=== PATIENT | female | born 1990 | race Caucasian/White ===

== ENCOUNTER 2019-04-14 17:48 | Emergency (ER) | payer SELFPAY ==
--- NOTE | 2019-04-14 20:07 | EDM.PDOC ---
ED [facility] GENERAL MEDICAL PROBLEM - General Chief Complaint: Respiratory Problem Time Seen by Provider: 04/14/19 19:38 - History of Present Illness INITIAL COMMENTS - FREE TEXT/NARRATIVE: HPI 28-year-old obese female smoker presents for evaluation of 2 days of cough and malaise. Denies fevers, chills, sore throat, nasal congestion. No history of DVT , PE, recent immobilization, calf tenderness, swelling, but notes scant bright red blood in sputum after significant coughing. Denies rash, neck stiffness, headache, changes in vision or hearing, or ear pain. Triage note: Patient to ED with complaint of cough and congestion since today. States prior to arrival she was coughing so hard that she coughed up bright red blood. M/S/F/SocHx notable for: please see HPI; remainder reviewed with patient and in chart. ROS: Negative constitutional, eye, cardiovascular, pulmonary, GI, , MSK, skin , neurologic, psychiatric, endocrine unless noted in the HPI. Exam HR 90, RR 18, BP 142/66, T 36.4C, SaO2 99% on room air. Gen: Pleasant, non-toxic appearing, resting comfortably. HEENT: Normocephalic, atraumatic. * Ears - TMs clear bilaterally, bilateral external auditory canals without erythema, inflammation, or swelling, bilateral mastoids nontender without overlying erythema, swelling, or warmth. * Eyes - Bilateral eyes without injection, swelling, or discharge, no proptosis or periorbital erythema, swelling, warmth, or tenderness. * Mouth - Anterior oropharynx with MMM, no lesions appreciated, floor of the mouth is soft and without swelling. Posterior oropharynx with mild erythema but without swelling, exudate, lesions, uvula midline. * Nose - nares without crusting or discharge. * Neck - Neck supple without posterior or anterior cervical chain lymphadenopathy bilaterally. Resp: Clear to auscultation bilaterally, normal work of breathing without accessory muscle usage. Infrequent nonproductive cough observed. Card: Regular rate and rhythm with no murmurs, rubs or gallops. Extremities warm and well perfused. GI: Non-tender to palpation throughout all quadrants, no masses or organomegaly appreciated. : Deferred Vascular: both calves of equal size and nontender to palpation. MSK: No visible deformities, strength and tone without visually appreciable deficit. Neuro: alert and oriented 3, no facial asymmetry, vision and hearing WNL. Heme/Lymph: Deferred Skin: Normal color with no visible lesions (other than noted above). Psych: Mood and affect appropriate. Imaging: CXR: No acute cardiopulmonary disease process. No focal infiltrate, cardiomegaly , rib fractures, or mediastinal widening, lung markings extend to the periphery bilaterally and there are no deep sulci. Radiologist's read pending. MDM Previous chart, nursing note, and vitals reviewed. A: 28-year-old obese female smoker presents for evaluation of 2 days of cough and malaise. DDx: viral rhinosinusitis, bacterial rhinosinusitis, pharyngitis (HSV vs viral NOS vs GAS vs bacterial NOS)], EBV, peritonsillar cellulitis, [employer], RPA, Mark' s angina, epiglottitis. Evaluation: Overall presentation most consistent with a viral upper respiratory tract infection, given the duration of symptoms and overall well compensated appearance, antibiotic treatment is not currently indicated, rapid strep not indicated, oral mucosa without lesions consistent with HSV or candidiasis, low suspicion for peritonsillar cellulitis or abscess given the absence of asymmetric swelling or uvular deviation, RPA is unlikely as the patient can comfortably flex and extend their neck and swallow without difficulty. As phonation is intact and breathing is unlabored doubt epiglottitis. The floor of the mouth is without evidence of Mark's angina. Lemierre's disease was considered but as the patient does not have signs of [employer] or sepsis, further evaluation was not indicated. Chest x-ray clear and without evidence of pneumonia. PE was considered on the differential, however there are no identifiable risk factors (aside from, process, however this is attributed to irritation from the patients recurrent coughing episodes). ED Course: No clinically significant changes. Disposition: Discharge with return to care as needed. Return to care indications provided. RX for Tessalon Perles provided. Impression: URI. coughing Pain Score (Numeric/FACES): 8 - Related Data Allergies Allergy/AdvReac Type Severity Reaction Status Date / Time amoxicillin [From Augmentin] Allergy Nausea and Verified 04/14/19 18:24 Vomiting azithromycin Allergy Nausea and Verified 04/14/19 18:24 Vomiting clavulanic acid Allergy Nausea and Verified 04/14/19 18:24 [From Augmentin] Vomiting doxycycline Allergy Vomiting Verified 04/14/19 18:24 ketorolac [From Toradol] Allergy Hives Verified 04/14/19 18:24 Home Meds: Home Meds Benzonatate [Tessalon Perle] 100 mg PO TID PRN #14 capsule 04/14/19 [Rx] Past Medical History Neurological History: Reports: Other (See Below) Other Neuro History: TBI - Infectious Disease History Infectious Disease History: Reports: Chicken Pox Social & Family History - Family History Family Medical History: Noncontributory - Tobacco Use Smoking Status *Q: Current Every Day Smoker Years of Tobacco use: 2 Packs/Tins Daily: 0.5 - Recreational Drug Use Recreational Drug Use: No ED ROS GENERAL - Review of Systems Review Of Systems: See Below ED EXAM, GENERAL - Physical Exam Exam: See Below Course - Vital Signs Last Recorded V/S: Last Vital Signs Temp 36.4 C 04/14/19 18:25 Pulse 78 04/14/19 19:37 Resp 20 04/14/19 19:37 BP 116/78 04/14/19 19:37 Pulse Ox 98 04/14/19 19:37 - Orders/Labs/Meds Orders: Active Orders 24 hr Category Date Time Status Chest 2V [CR] Stat Exams 04/14/19 18:27 Taken Labs: Laboratory Tests 04/14/19 Range/Units 18:30 Urine HCG, Qual NEGATIVE (NEGATIVE) Departure - Departure Time of Disposition: 20:06 Disposition: Home, Self-Care 01 Clinical Impression: URI (upper respiratory infection) - Discharge Information Prescriptions: Benzonatate [Tessalon Perle] 100 mg PO TID PRN #14 capsule PRN Reason: Cough Referrals: PCP,None [Primary Care Provider] - Sepsis Event Note - Evaluation Sepsis Screening Result: No Definite Risk - Focused Exam Vital Signs: Vital Signs Temp Pulse Resp BP Pulse Ox 04/14/19 19:37 78 20 116/78 98 04/14/19 18:25 36.4 C 92 18 142/66 H 99 Date Exam was Performed: 04/14/19 Time Exam was Performed: 20:05
--- NOTE | 2019-04-14 20:16 | CR ---
Chest: 2 views of the chest were obtained. Comparison: No previous chest x-ray. Heart size and mediastinum are normal. Lungs are clear. Bony structures are unremarkable. Impression: 1. Nothing acute is seen on 2 view chest x-ray. Diagnostic code #1 This report was dictated in [place] Standard Time
== END 2019-04-14 20:21 | disposition home or self-care (01) ==
LOC: MW.ED 17:48
DX: J06.9 Acute upper respiratory infection, unspecified (principal); F17.210 Nicotine dependence, cigarettes, uncomplicated; E66.9 Obesity, unspecified; Z88.1 Allergy status to other antibiotic agents; Z68.36 Body mass index [BMI] 36.0-36.9, adult
CPT/HCPCS: 71046; 71046-26; 81025; 87804; 99283-25